=== PATIENT | female | born 1995 | race Two or more races ===

== ENCOUNTER 2019-11-29 15:07 | Emergency (ER) | payer MEDICAID, OTHER ==
[~2019-11-29] VITALS: Ht 154.9 cm; Wt 59.0 kg
[2019-11-29 16:36] VITALS: BP 128/80
== END 2019-11-29 17:36 | disposition home or self-care (01) ==
LOC: ER 15:07
DX: S61.412A Laceration without foreign body of left hand, initial encounter (principal); W26.0XXA Contact with knife, initial encounter; Y93.89 Activity, other specified; Y92.89 Other specified places as the place of occurrence of the external cause; Y99.8 Other external cause status
CPT/HCPCS: 12001; 73120

== ENCOUNTER 2021-03-08 10:28 | Emergency (ER) | payer MEDICAID ==
[~2021-03-08] VITALS: Ht 154.9 cm; Wt 63.5 kg
[2021-03-08 11:27] VITALS: BP 157/89
[2021-03-08] MEDS ORDERED: KETOROLAC TROMETH 60MG/2ML VIAL IM ONE (11:45)
== END 2021-03-08 11:55 | disposition home or self-care (01) ==
LOC: ER 10:28
DX: S39.012A Strain of muscle, fascia and tendon of lower back, initial encounter (principal); X50.1XXA Overexertion from prolonged static or awkward postures, initial encounter; Y93.89 Activity, other specified; Y92.89 Other specified places as the place of occurrence of the external cause; Y99.8 Other external cause status
CPT/HCPCS: 96372; 99283; J1885

== ENCOUNTER 2021-04-16 17:14 | Emergency (ER) | payer MEDICAID ==
[~2021-04-16] VITALS: Ht 154.9 cm; Wt 61.2 kg
[2021-04-16 21:31] VITALS: BP 134/87
== END 2021-04-16 21:50 | disposition home or self-care (01) ==
LOC: ER 17:14
DX: S50.12XA Contusion of left forearm, initial encounter (principal); S51.852A Open bite of left forearm, initial encounter; W54.0XXA Bitten by dog, initial encounter; Y93.89 Activity, other specified; Y92.89 Other specified places as the place of occurrence of the external cause; Y99.8 Other external cause status
CPT/HCPCS: 73090

== ENCOUNTER 2023-06-03 11:29 | Emergency (ER) | payer MEDICAID ==
[~2023-06-03] VITALS: Ht 160 cm; Wt 68.0 kg
[2023-06-03 14:40] VITALS: BP 142/98; PULSE 92; RESP 16; TEMP 98.8; O2SAT 100
[2023-06-03] MEDS ORDERED: MELO7.5T7 PO (14:52)
== END 2023-06-03 15:03 | disposition home or self-care (01) ==
LOC: ER 11:29
DX: M67.431 Ganglion, right wrist (principal); Z79.899 Other long term (current) drug therapy